=== PATIENT | male | born 1975 | race Caucasian/White ===

== ENCOUNTER 2018-01-09 21:28 | Emergency (ER) | payer MEDICARE | END 2018-01-09 23:17 | disposition home or self-care (01) | LOC: D.ER 21:28 | DX: J11.1 Influenza due to unidentified influenza virus with other respiratory manifestations (principal); R07.81 Pleurodynia; J18.9 Pneumonia, unspecified organism; R50.9 Fever, unspecified; F17.200 Nicotine dependence, unspecified, uncomplicated ==

== ENCOUNTER 2018-11-04 18:32 | Emergency (ER) | payer MEDICARE ==
[~2018-11-04] VITALS: Ht 177.8 cm; Wt 104.5 kg
[2018-11-04 18:35] VITALS: Ht 177.8 cm; Wt 104.5 kg
[2018-11-04] MEDS ORDERED: LISINOPRIL10 MG PO (18:44)
[2018-11-04] MEDS ORDERED: LEXAPRO20 MG PO (18:54)
[2018-11-04] MEDS ORDERED: ROBAXIN500 MG PO (21:10)
[2018-11-04] MEDS ORDERED: VOLTAREN75 MG PO (21:10)
[2018-11-04 21:35] VITALS: BP 133/86
== END 2018-11-04 21:35 | disposition home or self-care (01) ==
LOC: D.ER 18:32
DX: M54.5 Low back pain (principal); M79.18 Myalgia, other site; I10 Essential (primary) hypertension; F17.200 Nicotine dependence, unspecified, uncomplicated

== ENCOUNTER 2019-03-16 21:50 | Emergency (ER) | payer MEDICARE ==
[~2019-03-16] VITALS: Ht 177.8 cm; Wt 102.3 kg
[~2019-03-16 21:50] MED LIST: LEXAPRO20 MG PO; LISINOPRIL10 MG PO; ROBAXIN500 MG PO; VOLTAREN75 MG PO
[2019-03-16 21:53] VITALS: Ht 177.8 cm; Wt 102.3 kg
[2019-03-16] MEDS ORDERED: PREVACID15 MG (22:00)
[2019-03-16 22:38] LABS: BASOPHILS 0.2 % (0-2); EOSINOPHILS 1.2 % (0-7); HEMATOCRIT 46.8 % (42.0-54.0); HEMOGLOBIN 16.4 g/dL (13.5-17.5); IMMATURE GRANULOCYTES 0.2 % (0-5); LYMPHOCYTES 42.5 % (15-50); MCH 33.2 pg (26.0-34.0); MCV 94.7 fL (80.0-100.0); MEAN PLATELET VOLUME 9.9 fL (7.4-10.4); NEUTROPHILS 50.9 % (40-80); PLATELET COUNT 207 10x3/uL (130-400); RBC 4.94 10x6/uL (4.20-6.10); RDW 12.8 % (11.5-14.5); WBC 12.3 10x3/uL (4.8-10.8)
[2019-03-16 22:42] LABS: INR 1.04 (0.85-1.17); PROTIME 13.1 SECONDS (11.6-15.0)
[2019-03-16 22:49] LABS: ALKALINE PHOSPHATASE 68 U/L (46-116); ALT (SGPT) 33 U/L (10-68); BILIRUBIN - TOTAL 0.45 mg/dL (0.2-1.3); CALC OSMOLALITY 274 mosm/kg (275-300); CALCIUM 8.8 mg/dL (8.5-10.1); CARBON DIOXIDE 20.5 mmol/L (21.0-32.0); CHLORIDE - SERUM 101 mmol/L (98-107); GLUCOSE 109 mg/dL (74-106); POTASSIUM - SERUM 3.3 mmol/L (3.5-5.1); PROTEIN - SERUM 7.5 g/dL (6.4-8.2); SODIUM 138 mmol/L (136-145); UREA NITROGEN 8 mg/dL (7-18); eGFR NON AFRICAN AMERICAN 87 mL/min (90-120)
[2019-03-16 23:01] LABS: CKMB 0.7 U/L (0.0-3.6); CREATINE KINASE 71 UL (21-232)
[2019-03-16 23:09] LABS: TROPONIN-I < 0.017 ng/mL (0.000-0.060)
[2019-03-16 23:50] VITALS: BP 113/60
== END 2019-03-16 23:50 | disposition home or self-care (01) ==
LOC: D.ER 21:50
PROVIDERS: Family Medicine
DX: L98.8 Other specified disorders of the skin and subcutaneous tissue (principal); T59.811A Toxic effect of smoke, accidental (unintentional), initial encounter; J70.5 Respiratory conditions due to smoke inhalation; Y92.010 Kitchen of single-family (private) house as the place of occurrence of the external cause